=== PATIENT | male | born 1985 | race Caucasian/White ===

== ENCOUNTER 2020-05-10 17:47 | Emergency (ER) | payer OTHER ==
[~2020-05-10] VITALS: Ht 182.9 cm; Wt 83.9 kg
[2020-05-10] MEDS ORDERED: AMOXICILLIN 50500 MG PO (18:02)
[2020-05-10] MEDS ORDERED: LEVETIRACETAM1000 MG PO ×2 (18:02)
[2020-05-10] MEDS ORDERED: ALPRAZOLAM2 MG PO (18:03)
[2020-05-10] MEDS ORDERED: DOXYCYCLINE 10100 M2 PO (18:04)
[2020-05-10] MEDS ORDERED: ZOFRAN8 MG PO (18:08)
[2020-05-10 18:12] LABS: ABSOLUTE NEUTROPHILS 5.7 thou/uL (1.4-8.2); BASOPHILS 0.4 % (0.0-2.0); EOSINOPHILS 0.9 % (0.0-3.0); HEMATOCRIT 44.4 % (42.0-52.0); HEMOGLOBIN 14.8 gm/dL (14.0-18.0); LYMPHOCYTES 30.7 % (24.0-44.0); MCH 30.2 pg (26.0-34.0); MCHC 33.4 g/dL (28.0-37.0); MCV 90.5 fL (80.0-100.0); RBC 4.91 mil/uL (4.50-6.00); RDW 12.9 % (10.5-14.5); WBC 10.2 thou/uL (4.0-11.0)
[2020-05-10 18:17] LABS: CALCIUM 9.2 mg/dL (8.5-10.1); CREATININE 0.8 mg/dL (0.7-1.3); POTASSIUM 5.1 mmol/L (3.5-5.1)
[2020-05-10 18:23] LABS: ALBUMIN 3.8 g/dL (3.4-5.0); TOTAL BILIRUBIN 0.4 mg/dL (0.2-1.0); TOTAL PROTEIN 6.9 g/dL (6.4-8.2)
[2020-05-10 18:49] LABS: PLATELET COUNT 213 thou/uL (150-400); PLATELET ESTIMATE NORMAL
[2020-05-10 20:02] LABS: URINE BILIRUBIN NEGATIVE (Negative); URINE BLOOD NEGATIVE (Negative); URINE CLARITY CLEAR; URINE COLOR YELLOW; URINE GLUCOSE-RANDOM* NEGATIVE (Negative); URINE KETONES NEGATIVE (Negative); URINE LEUKOCYTES-REFLEX NEGATIVE (Negative); URINE NITRITE-REFLEX NEGATIVE (Negative); URINE PROTEIN (DIPSTICK) NEGATIVE (Negative); URINE UROBILINOGEN 0.2 E.U./dl (0.2-1.0)
[2020-05-10] MEDS ORDERED: NORCO 5-325 TA1 EAC1 PO (20:02)
[2020-05-10 20:06] VITALS: BP 117/68
[2020-05-10] MEDS ORDERED: KEPPRA1000 MG PO (20:07)
[2020-05-10 20:13] LABS: AMP/METHAMP Negative (Negative); BARBITURATES Negative (Negative); BENZODIAZEPINES POSITIVE (Negative); COCAINE Negative (Negative); METHADONE Negative (Negative); OPIATES POSITIVE (Negative); PCP Negative (Negative)
[2020-05-13 07:40] LABS: HSV PCR SOURCE BLISTER
[2020-05-13 15:08] LABS: HSV 1 DNA Negative (Negative); HSV 2 DNA Negative (Negative)
[2020-05-15 22:06] LABS: SYPHILIS AB Non Reactive (Non Reactive)
== END 2020-05-10 20:19 | disposition home or self-care (01) ==
LOC: ER 17:47
PROVIDERS: Physician Assistant
DX: R56.9 Unspecified convulsions (principal); N50.89 Other specified disorders of the male genital organs; M54.2 Cervicalgia; F17.210 Nicotine dependence, cigarettes, uncomplicated; F12.90 Cannabis use, unspecified, uncomplicated; Z91.14 Patient's other noncompliance with medication regimen; Z79.899 Other long term (current) drug therapy; Z98.890 Other specified postprocedural states